=== PATIENT | female | born 1995 | race Caucasian/White ===

== ENCOUNTER 2017-05-14 13:07 | Emergency (ER) | payer BC ==
[2017-05-14 13:13] VITALS: BP 131/88
[2017-05-14 13:58] LABS: CALCIUM 9.2 mg/dL (8.5-10.1); CARBON DIOXIDE 22.8 mmol/L (21-32); CHLORIDE SERUM 104 mmol/L (98-107); CREATININE SERUM 0.8 mg/dL (0.6-1.0); GFR1 > 60 mL/min; GLUCOSE SERUM 88 mg/dL (74-106); POTASSIUM SERUM 4.1 mmol/L (3.5-5.1); RED CELL DISTRIBUTION WIDTH 12.4 % (11.5-14.5); SODIUM SERUM 137 mmol/L (136-145)
[2017-05-14 14:03] LABS: ALBUMIN 3.8 g/dL (3.4-5.0); ALKALINE PHOSPHATASE 49 U/L (46-116); ALT/SGPT 25 U/L (14-59); AST/SGOT 15 U/L (15-37); BILIRUBIN TOTAL 0.51 mg/dL (0.20-1.00); LIPASE 136 IU/L (73-393); TOTAL PROTEIN, SERUM 7.6 g/dL (6.4-8.2)
[2017-05-14 14:22] LABS: PLATELET COUNT 192 x10^3mcL (130-400)
== END 2017-05-14 15:26 | disposition home or self-care (01) ==
LOC: ED 13:07
PROVIDERS: Specialist
DX: R10.32 Left lower quadrant pain (principal); E03.9 Hypothyroidism, unspecified
CPT/HCPCS: 36415

== ENCOUNTER 2019-06-01 18:20 | Emergency (ER) | payer BC ==
[~2019-06-01] VITALS: Ht 177.8 cm; Wt 58.1 kg
[2019-06-01 18:48] VITALS: Ht 177.8 cm; Wt 58.1 kg
[2019-06-01 22:45] VITALS: BP 127/71
== END 2019-06-01 22:45 | disposition left against medical advice (07) ==
LOC: ED 18:20
DX: H83.03 Labyrinthitis, bilateral (principal); R42 Dizziness and giddiness; R11.0 Nausea; Z98.890 Other specified postprocedural states; Z91.010 Allergy to peanuts
CPT/HCPCS: J1200; J2765; J8597; Q0162

== ENCOUNTER 2019-06-15 21:00 | Emergency (ER) | payer BC ==
[~2019-06-15] VITALS: Ht 175.3 cm; Wt 59.9 kg
[2019-06-15 21:04] VITALS: Ht 175.3 cm; Wt 59.9 kg
[2019-06-15 21:51] LABS: BASOPHIL % 0.9 % (0-2); PLATELET COUNT 240 x10^3mcL (130-400); RED CELL DISTRIBUTION WIDTH 12.3 % (11.5-14.5)
[2019-06-15 21:54] LABS: CALCIUM 9.5 mg/dL (8.5-10.1); CARBON DIOXIDE 26.3 mmol/L (21-32); CHLORIDE SERUM 103 mmol/L (98-107); CREATININE SERUM 0.7 mg/dL (0.6-1.0); GFR1 > 60 mL/min; GLUCOSE SERUM 94 mg/dL (74-106); POTASSIUM SERUM 3.8 mmol/L (3.5-5.1); SODIUM SERUM 140 mmol/L (136-145)
[2019-06-15 21:59] LABS: ALBUMIN 3.9 g/dL (3.4-5.0); ALKALINE PHOSPHATASE 56 U/L (46-116); ALT/SGPT 48 U/L (14-59); AST/SGOT 22 U/L (15-37); TOTAL PROTEIN, SERUM 8.1 g/dL (6.4-8.2)
[2019-06-15 22:00] LABS: C REACTIVE PROTEIN < 0.2 mg/dL (<=0.9)
[2019-06-15 22:09] LABS: FREE THYROXINE INDEX 3.2 ug/dL (1.4-4.5); T4(THYROXINE) 9.8 ug/dL (4.7-13.3)
[2019-06-15 22:28] LABS: T3 TOTAL 1.16 ng/mL
[2019-06-15 22:47] LABS: ERYTHROCYTE SED RATE 10 mm/hr (0-20)
[2019-06-16 01:00] VITALS: BP 108/57
== END 2019-06-16 01:00 | disposition home or self-care (01) ==
LOC: ED 21:00
PROVIDERS: Emergency Medicine
DX: R53.1 Weakness (principal); R42 Dizziness and giddiness; R51 Headache; E03.9 Hypothyroidism, unspecified; Z98.890 Other specified postprocedural states; Z91.010 Allergy to peanuts
CPT/HCPCS: 84439; J2765; J7030